=== PATIENT | male | born 1995 | race American Indian/Alaskan Native ===

== ENCOUNTER 2018-08-27 10:46 | Inpatient (IN) | payer BC, OTHER ==
[2018-08-27] MEDS ORDERED: NACL 0.9% 1000 ML 1,000 ML IV ONE (10:51)
[2018-08-27 11:18] LABS: Basophils # (Auto) 0.1 K/mm3 (0.0-0.1); Eosinophils # (Auto) 0.3 K/mm3 (0.0-0.4); Hemoglobin 15.1 gm/dl (11.8-15.2); Monocytes # (Auto) 0.7 K/mm3 (0.0-0.8); Monocytes % (Auto) 13.6 % (0.0-7.3); Red Blood Count 5.44 M/mm3 (3.65-5.03)
[2018-08-27 11:19] LABS: Lymphocytes # (Auto) 1.3 K/mm3 (1.2-5.4); Lymphocytes % (Auto) 24.4 % (13.4-35.0); Mean Corpuscular HGB Conc 33 % (32-34); Mean Corpuscular Volume 85 fl (84-94); Platelet Count 216 K/mm3 (140-440); Red Cell Distribution Width 15.1 % (13.2-15.2)
[2018-08-27 11:34] LABS: Alanine Aminotransferase 11 units/L (7-56); Albumin 3.6 g/dL (3.9-5); BUN/Creatinine Ratio 7; Blood Urea Nitrogen 8 mg/dL (9-20); Calcium 8.6 mg/dL (8.4-10.2); Hemolysis Index 19
--- NOTE | 2018-08-27 11:58 | Emergency Department Report ---
HPI - General Chief Complaint: Altered Mental Status Time Seen by Provider: 08/27/18 10:51 - HPI HPI: 23-year-old -[place] male presents to ED after taking unknown amount of Tylenol, aspirin, as a suicidal gesture. He is accompanied by her brother, who stated he didn't know he had depression, and doesn't know many pills he took. He denies that he approximately took 10 equate acetaminophen pills unknown dosage, and 10 of aspirin 81 mg. Stated he didn't want to live anymore. ED Past Medical Hx - Past Medical History Previous Medical History?: No - Surgical History Past Surgical History?: No - Social History Smoking Status: Current Every Day Smoker Substance Use Type: Alcohol, Marijuana - Medications Home Medications: Home Medications Medication Instructions Recorded Confirmed Last Taken Type Ketorolac [Toradol] 10 mg PO Q6H PRN #20 tablet 01/03/15 Unknown Rx ED Review of Systems ROS: Stated complaint: OVERDOSE PAIN PILLS Other details as noted in HPI Comment: All other systems reviewed and negative Respiratory: denies: cough Cardiovascular: denies: chest pain Gastrointestinal: nausea Musculoskeletal: denies: back pain Psychiatric: anxiety, depression Physical Exam - Physical Exam Vital Signs: Vital Signs 08/27/18 11:00 Temperature 97.5 F L Pulse Rate 85 Respiratory 16 Rate Blood Pressure 144/94 O2 Sat by Pulse 98 Oximetry Physical Exam: Physical Exam: - General Limitations: No Limitations General appearance: awake, but lethargic, in no apparent distress,thin - Head Head exam: Present: atraumatic, normocephalic - Eye Eye exam: Present: normal appearance - ENT ENT exam: Present: mucous membranes moist - Neck Neck exam: Present: normal inspection - Respiratory Respiratory exam: Present: normal lung sounds bilaterally. Absent: respiratory distress - Cardiovascular Cardiovascular Exam: Present: normal rhythm, tachycardia. Absent: systolic murm ur, diastolic murmur, rubs, gallop - GI/Abdominal GI/Abdominal exam: Present: soft, normal bowel sounds - Extremities Exam Extremities exam: Present: normal inspection - Back Exam Back exam: Present: normal inspection - Neurological Exam Neurological exam: Present: Lethargic - Psychiatric Psychiatric exam: Depressed mood - Skin Skin exam: Present: warm, dry, intact, normal color. Absent: rash ED Course Vital Signs 08/27/18 11:00 Temperature 97.5 F L Pulse Rate 85 Respiratory 16 Rate Blood Pressure 144/94 O2 Sat by Pulse 98 Oximetry ED Medical Decision Making - Lab Data Result diagrams: 08/27/18 10:57 08/27/18 10:57 - Medical Decision Making The patient was placed on 1013, he was hydrated with normal saline 1 L, he was started on Mucomyst, per poison control. He will be admitted under 1013, transferred to psych once medically clear. Critical Care Time: Yes Critical care time in (mins) excluding proc time.: 30 Critical care attestation.: If time is entered above; I have spent that time in minutes in the direct care of this critically ill patient, excluding procedure time. ED Disposition Clinical Impression: Suicidal ideation, Suicidal behavior with attempted self-injury Disposition: DC-09 OP ADMIT IP TO THIS HOSP Is pt being admited?: Yes Does the pt Need Aspirin: No Condition: Critical
--- NOTE | 2018-08-27 12:00 | Cat Scan Report ---
PROCEDURE: CT HEAD/BRAIN WO CON TECHNIQUE: Computerized tomography of the head was performed without contrast material. CT DOSE LENGTH PRODUCT: 1035.5 mGycm HISTORY: ams COMPARISONS: None . FINDINGS: Skull and scalp: Normal . Paranasal sinuses: Normal . Ventricles and subarachnoid spaces: Normal . Cerebrum: No evidence of hemorrhage, acute infarction or mass . Cerebellum and brainstem: No evidence of hemorrhage, acute infarction or mass . Vasculature: Normal . Other: None . ASPECTS: 10 IMPRESSION: No acute intracranial abnormality . This document is electronically signed by Lacie Joseph MD., August 27 2018 11:57:57 AM ET
[2018-08-27] MEDS ORDERED: D5W IV ONE ×3 (15:30→21:00)
[2018-08-27] MEDS ORDERED: ACETADOTE IV ONE ×3 (15:30→21:00)
[2018-08-27 16:05] LABS: Bilirubin,Urine NEG (Negative); Blood,Urine NEG (Negative); Color,Urine Straw (Yellow); Protein,Urine <15 mg/dL mg/dL (Negative); Urobilinogen,Urine < 2.0 mg/dL (<2.0)
[2018-08-27 16:09] LABS: RBC,Urine < 1.0 /HPF (0.0-6.0); WBC,Urine < 1.0 /HPF (0.0-6.0)
[2018-08-27 16:15] LABS: Amphetamine Screen,Urine PRESUMPTIVE NEGATIVE; Benzodiazepines Screen,Urine PRESUMPTIVE NEGATIVE; Cocaine Screen,Urine PRESUMPTIVE NEGATIVE; Methadone Screen,Urine PRESUMPTIVE NEGATIVE; Opiate Screen,Urine PRESUMPTIVE NEGATIVE
[2018-08-27 16:32] LABS: Cannabinoid Screen,Urine PRESUMPTIVE POSITIVE
[2018-08-27] MEDS: NACL 0.9% 1000 ML 1,000 ML IV SCH (18:33)
--- NOTE | 2018-08-27 20:25 | History and Physical Report ---
History of Present Illness Date of examination: 08/27/18 Date of admission: 08/27/18 12:52 Chief complaint: 210 tablets for her aspirin and her 10 tablets for Tylenol with the intent of dying History of present illness: 23-year-old -Wallisian male with no significant past medical history took about 10 tablets of aspirin and 10 tablets after Tylenol 3-4 hours ago. Patient says that he is depressed and wanted to . He says that there is no incentive to live. No vomiting. No gastric lavage done in the emergency room Past Medical History Previous Medical History?: No Surgical History Past Surgical History?: No Social History Smoking Status: Current Every Day Smoker Substance Use Type: Alcohol, Marijuana Family history HTN Medications Home Medications: Home Medications Medication Instructions Recorded Confirmed Last Taken Type Ketorolac [Toradol] 10 mg PO Q6H PRN #20 tablet 01/03/15 Unknown Rx Review of Systems ROS: Stated complaint: OVERDOSE PAIN PILLS Other details as noted in HPI Comment: All other systems reviewed and negative Respiratory: denies: cough Cardiovascular: denies: chest pain Gastrointestinal: nausea Musculoskeletal: denies: back pain Psychiatric: anxiety, depression 14 point review of systems done and was negative. Medications and Allergies Allergies Allergy/AdvReac Type Severity Reaction Status Date / Time No Known Allergies Allergy Unverified 01/03/15 13:24 Home Medications Medication Instructions Recorded Confirmed Last Taken Type Ketorolac [Toradol] 10 mg PO Q6H PRN #20 tablet 01/03/15 Unknown Rx Active Meds: Active Medications Sodium Chloride (Nacl 0.9% 1000 Ml) 1,000 mls @ 150 mls/hr IV DIRECT MICHELINE Last Admin: 08/27/18 18:33 Dose: 150 mls/hr Documented by: Exam - Constitutional Vitals: Temp Pulse Resp BP Pulse Ox 97.9 F 60 18 142/89 97 08/27/18 15:26 08/27/18 15:26 08/27/18 15:26 08/27/18 15:26 08/27/18 15:26 General appearance: Present: no acute distress, well-nourished - EENT Eyes: Present: PERRL ENT: hearing intact, clear oral mucosa - Neck Neck: Present: supple, normal ROM - Respiratory Respiratory effort: normal Respiratory: bilateral: CTA - Cardiovascular Heart rate: 78 Rhythm: regular Heart Sounds: Present: S1 & S2. Absent: rub, click - Extremities Extremities: no ischemia, pulses intact, pulses symmetrical, No edema Peripheral Pulses: within normal limits - Abdominal General gastrointestinal: Present: soft, non-tender, non-distended, normal bowel sounds Male genitourinary: Present: normal - Rectal Rectal Exam: deferred - Integumentary Integumentary: Present: clear, warm, dry - Musculoskeletal Musculoskeletal: gait normal, strength equal bilaterally - Psychiatric Psychiatric: appropriate mood/affect, intact judgment & insight, depressed - Neurologic Neurologic: CNII-XII intact, moves all extremities - Allied Health Allied health notes reviewed: nursing, case management Results - Labs CBC & Chem 7: 08/27/18 10:57 08/27/18 10:57 Labs: Laboratory Last Values WBC 5.2 K/mm3 (4.5-11.0) 08/27/18 10:57 RBC 5.44 M/mm3 (3.65-5.03) H 08/27/18 10:57 Hgb 15.1 gm/dl (11.8-15.2) 08/27/18 10:57 Hct 46.0 % (35.5-45.6) H 08/27/18 10:57 MCV 85 fl (84-94) 08/27/18 10:57 MCH 28 pg (28-32) 08/27/18 10:57 MCHC 33 % (32-34) 08/27/18 10:57 RDW 15.1 % (13.2-15.2) 08/27/18 10:57 Plt Count 216 K/mm3 (140-440) 08/27/18 10:57 Lymph % (Auto) 24.4 % (13.4-35.0) 08/27/18 10:57 [place] % (Auto) 13.6 % (0.0-7.3) H 08/27/18 10:57 Eos % (Auto) 5.0 % (0.0-4.3) H 08/27/18 10:57 Baso % (Auto) 1.0 % (0.0-1.8) 08/27/18 10:57 Lymph # 1.3 K/mm3 (1.2-5.4) 08/27/18 10:57 [place] # 0.7 K/mm3 (0.0-0.8) 08/27/18 10:57 Eos # 0.3 K/mm3 (0.0-0.4) 08/27/18 10:57 Baso # 0.1 K/mm3 (0.0-0.1) 08/27/18 10:57 Add Manual Diff Complete 08/27/18 10:57 Seg Neutrophils % 56.0 % (40.0-70.0) 08/27/18 10:57 Seg Neutrophils # 2.9 K/mm3 (1.8-7.7) 08/27/18 10:57 Sodium 141 mmol/L (137-145) 08/27/18 10:57 Potassium 3.5 mmol/L (3.6-5.0) L 08/27/18 10:57 Chloride 104.5 mmol/L (98-107) 08/27/18 10:57 Carbon Dioxide 23 mmol/L (22-30) 08/27/18 10:57 17 mmol/L 08/27/18 10:57 BUN 8 mg/dL (9-20) L 08/27/18 10:57 1.2 mg/dL (0.8-1.5) 08/27/18 10:57 Estimated GFR > 60 ml/min 08/27/18 10:57 7 % 08/27/18 10:57 Glucose 82 mg/dL (75-100) 08/27/18 10:57 Calcium 8.6 mg/dL (8.4-10.2) 08/27/18 10:57 0.20 mg/dL (0.1-1.2) 08/27/18 10:57 AST 18 units/L (5-40) 08/27/18 10:57 ALT 11 units/L (7-56) 08/27/18 10:57 72 units/L (35-129) 08/27/18 10:57 < 0.010 ng/mL (0.00-0.029) 08/27/18 10:57 6.6 g/dL (6.3-8.2) 08/27/18 10:57 3.6 g/dL (3.9-5) L 08/27/18 10:57 1.2 % 08/27/18 10:57 Straw (Yellow) 08/27/18 Unknown Clear (Clear) 08/27/18 Unknown 6.0 (5.0-7.0) 08/27/18 Unknown Ur Specific [place] 1.010 (1.003-1.030) 08/27/18 Unknown <15 mg/dl mg/dL (Negative) 08/27/18 Unknown Neg mg/dL (Negative) 08/27/18 Unknown Neg mg/dL (Negative) 08/27/18 Unknown Neg (Negative) 08/27/18 Unknown Neg (Negative) 08/27/18 Unknown Neg (Negative) 08/27/18 Unknown < 2.0 mg/dL (<2.0) 08/27/18 Unknown Ur Leukocyte Esterase Neg (Negative) 08/27/18 Unknown < 1.0 /HPF (0.0-6.0) 08/27/18 Unknown < 1.0 /HPF (0.0-6.0) 08/27/18 Unknown U Epithel Cells (Auto) < 1.0 /HPF (0-13.0) 08/27/18 Unknown Salicylates 4.1 mg/dL (2.8-20.0) 08/27/18 14:42 Presumptive negative 08/27/18 Unknown Presumptive negative 08/27/18 Unknown Acetaminophen 50.6 ug/mL (10.0-30.0) H 08/27/18 14:42 Ur Barbiturates Screen Presumptive negative 08/27/18 Unknown Ur Phencyclidine Scrn Presumptive negative 08/27/18 Unknown Ur Amphetamines Screen Presumptive negative 08/27/18 Unknown U Benzodiazepines Scrn Presumptive negative 08/27/18 Unknown Presumptive negative 08/27/18 Unknown U Marijuana (THC) Screen Presumptive positive 08/27/18 Unknown Disclamer 08/27/18 Unknown Plasma/Serum Alcohol 0.06 % (0-0.07) 08/27/18 10:57 Short CBC 08/27/18 Range/Units 10:57 WBC 5.2 (4.5-11.0) K/mm3 Hgb 15.1 (11.8-15.2) gm/dl Hct 46.0 H (35.5-45.6) % Plt Count 216 (140-440) K/mm3 BMP 08/27/18 10:57 Sodium 141 Potassium 3.5 L Chloride 104.5 Carbon Dioxide 23 BUN 8 L Creatinine 1.2 Glucose 82 Calcium 8.6 Cardiac Enzymes 08/27/18 Range/Units 10:57 Troponin T < 0.010 (0.00-0.029) ng/mL Liver Function 08/27/18 Range/Units 10:57 Total Bilirubin 0.20 (0.1-1.2) mg/dL AST 18 (5-40) units/L ALT 11 (7-56) units/L Alkaline Phosphatase 72 (35-129) units/L Albumin 3.6 L (3.9-5) g/dL Urine 08/27/18 Range/Units Unknown Urine Color Straw (Yellow) Urine pH 6.0 (5.0-7.0) Ur Specific [place] 1.010 (1.003-1.030) Urine Protein <15 mg/dl (Negative) mg/dL Urine Glucose (UA) Neg (Negative) mg/dL - Imaging and Cardiology CT Scan - head: report reviewed (no acute findings) Assessment and Plan Advance Directives: Yes (full code) VTE prophylaxis?: Chemical Plan of care discussed with patient/family: Yes - Patient Problems (1) Suicidal behavior with attempted self-injury Current Visit: Yes Status: Acute Plan to address problem: Mental health consult requested Patient is depressed Patient may need antidepressants (2) Tylenol overdose Current Visit: Yes Status: Acute Qualifiers: Encounter type: initial encounter Plan to address problem: Tylenol level 94.5 Discussed with poison control Only IV fluids No Mucomyst Observation (3) Depression Current Visit: Yes Status: Chronic Plan to address problem: Will defer to mental health consult (4) Hypokalemia Current Visit: Yes Status: Acute Plan to address problem: Supplemented (5) DVT prophylaxis Current Visit: Yes Status: Acute Plan to address problem: On Lovenox and GI prophylaxis
[2018-08-27] MEDS ORDERED: ZOFRAN IV PRN (20:29)
[2018-08-27] MEDS ORDERED: DILAUDID IV PRN (20:29)
[2018-08-27] MEDS ORDERED: SODIUM CHLORIDE FLUSH SYRINGE 10 ML IV PRN (20:29)
[2018-08-27] MEDS ORDERED: TYLENOL PO PRN (20:29)
[2018-08-27] MEDS: PEPCID IV SCH (23:22)
[2018-08-27] MEDS: LOVENOX SUB-Q SCH (23:23)
[2018-08-27] MEDS: SODIUM CHLORIDE FLUSH SYRINGE 10 ML IV SCH (23:23)
[2018-08-28] MEDS: NACL 0.9% 1000 ML 1,000 ML IV SCH ×4 (00:56→18:14)
[2018-08-28 08:45] LABS: Basophils # (Auto) 0.1 K/mm3 (0.0-0.1); Basophils % (Auto) 1.3 % (0.0-1.8); Eosinophils # (Auto) 0.2 K/mm3 (0.0-0.4); Eosinophils % (Auto) 4.4 % (0.0-4.3); Hematocrit 43.1 % (35.5-45.6); Hemoglobin 14.1 gm/dl (11.8-15.2); Lymphocytes # (Auto) 1.1 K/mm3 (1.2-5.4); Lymphocytes % (Auto) 23.5 % (13.4-35.0); Mean Corpuscular HGB Conc 33 % (32-34); Mean Corpuscular Volume 85 fl (84-94); Monocytes # (Auto) 0.4 K/mm3 (0.0-0.8); Monocytes % (Auto) 8.2 % (0.0-7.3); Platelet Count 204 K/mm3 (140-440); Red Blood Count 5.08 M/mm3 (3.65-5.03)
[2018-08-28 09:14] LABS: Alanine Aminotransferase 9 units/L (7-56); Albumin 3.2 g/dL (3.9-5); BUN/Creatinine Ratio 6; Blood Urea Nitrogen 6 mg/dL (9-20); Calcium 8.2 mg/dL (8.4-10.2); Hemolysis Index 11
[2018-08-28] MEDS: PEPCID IV SCH ×2 (12:07→21:46)
[2018-08-28] MEDS: SODIUM CHLORIDE FLUSH SYRINGE 10 ML IV SCH ×2 (12:08→21:46)
--- NOTE | 2018-08-28 17:32 | Progress Note ---
Assessment and Plan Assessment and plan: --Suicide attempt; suicide watch 1013 status, follow psych evaluation and recommendations --Tylenol overdose; interventional/suicidal attempt Monitor levels, LFTs, continue supportive care Patient received a dose of status post ED Poison control recommend supportive care with IV fluids and Tylenol levels --Depression:1013 status Management per psych hypokalemia --Hypokalemia; corrected --DVT prophylaxis; Lovenox 1013 status Follow psych evaluation and recommendations Possible discharge in 1-2 days if stable History Interval history: Patient seen and examined medical records reviewed Admitted with suicidal attempt with Tylenol overdose Patient received a stent sustaining the ED Poison control advice to closely monitor the IV fluids An monitor Tylenol levels Patient feels better alert awake oriented No new complaints Awaiting psych evaluation Vital signs noted Hospitalist Physical - Constitutional Vitals: Temp Pulse Resp BP Pulse Ox 98.1 F 57 L 20 141/90 98 08/28/18 17:12 08/28/18 17:12 08/28/18 17:12 08/28/18 17:12 08/28/18 17:12 General appearance: Present: no acute distress, well-nourished - EENT Eyes: Present: PERRL, EOM intact - Neck Neck: Present: supple, normal ROM - Respiratory Respiratory effort: normal Respiratory: negative: rales, rhonchi, wheezing - Cardiovascular Rhythm: regular Heart Sounds: Present: S1 & S2 - Extremities Extremities: no ischemia, No edema - Abdominal General gastrointestinal: soft, non-tender, non-distended, normal bowel sounds - Integumentary Integumentary: Present: clear, warm - Psychiatric Psychiatric: appropriate mood/affect, cooperative - Neurologic Neurologic: moves all extremities Results - Labs CBC & Chem 7: 08/28/18 07:18 08/28/18 07:18 Labs: Laboratory Last Values WBC 4.8 K/mm3 (4.5-11.0) 08/28/18 07:18 RBC 5.08 M/mm3 (3.65-5.03) H 08/28/18 07:18 Hgb 14.1 gm/dl (11.8-15.2) 08/28/18 07:18 Hct 43.1 % (35.5-45.6) 08/28/18 07:18 MCV 85 fl (84-94) 08/28/18 07:18 MCH 28 pg (28-32) 08/28/18 07:18 MCHC 33 % (32-34) 08/28/18 07:18 RDW 15.0 % (13.2-15.2) 08/28/18 07:18 Plt Count 204 K/mm3 (140-440) 08/28/18 07:18 Lymph % (Auto) 23.5 % (13.4-35.0) 08/28/18 07:18 [place] % (Auto) 8.2 % (0.0-7.3) H 08/28/18 07:18 Eos % (Auto) 4.4 % (0.0-4.3) H 08/28/18 07:18 Baso % (Auto) 1.3 % (0.0-1.8) 08/28/18 07:18 Lymph # 1.1 K/mm3 (1.2-5.4) L 08/28/18 07:18 [place] # 0.4 K/mm3 (0.0-0.8) 08/28/18 07:18 Eos # 0.2 K/mm3 (0.0-0.4) 08/28/18 07:18 Baso # 0.1 K/mm3 (0.0-0.1) 08/28/18 07:18 Add Manual Diff Complete 08/27/18 10:57 Seg Neutrophils % 62.6 % (40.0-70.0) 08/28/18 07:18 Seg Neutrophils # 3.0 K/mm3 (1.8-7.7) 08/28/18 07:18 Sodium 140 mmol/L (137-145) 08/28/18 07:18 Potassium 3.9 mmol/L (3.6-5.0) 08/28/18 07:18 Chloride 105.5 mmol/L (98-107) 08/28/18 07:18 Carbon Dioxide 26 mmol/L (22-30) 08/28/18 07:18 12 mmol/L 08/28/18 07:18 BUN 6 mg/dL (9-20) L 08/28/18 07:18 1.0 mg/dL (0.8-1.5) 08/28/18 07:18 Estimated GFR > 60 ml/min 08/28/18 07:18 6 % 08/28/18 07:18 Glucose 87 mg/dL (75-100) 08/28/18 07:18 5.5 % (4-6) 08/27/18 20:43 Calcium 8.2 mg/dL (8.4-10.2) L 08/28/18 07:18 0.30 mg/dL (0.1-1.2) 08/28/18 07:18 AST 16 units/L (5-40) 08/28/18 07:18 ALT 9 units/L (7-56) 08/28/18 07:18 56 units/L (35-129) 08/28/18 07:18 < 0.010 ng/mL (0.00-0.029) 08/27/18 10:57 5.9 g/dL (6.3-8.2) L 08/28/18 07:18 3.2 g/dL (3.9-5) L 08/28/18 07:18 1.2 % 08/28/18 07:18 Straw (Yellow) 08/27/18 Unknown Clear (Clear) 08/27/18 Unknown 6.0 (5.0-7.0) 08/27/18 Unknown Ur Specific [place] 1.010 (1.003-1.030) 08/27/18 Unknown <15 mg/dl mg/dL (Negative) 08/27/18 Unknown Neg mg/dL (Negative) 08/27/18 Unknown Neg mg/dL (Negative) 08/27/18 Unknown Neg (Negative) 08/27/18 Unknown Neg (Negative) 08/27/18 Unknown Neg (Negative) 08/27/18 Unknown < 2.0 mg/dL (<2.0) 08/27/18 Unknown Ur Leukocyte Esterase Neg (Negative) 08/27/18 Unknown < 1.0 /HPF (0.0-6.0) 08/27/18 Unknown < 1.0 /HPF (0.0-6.0) 08/27/18 Unknown U Epithel Cells (Auto) < 1.0 /HPF (0-13.0) 08/27/18 Unknown Salicylates 4.1 mg/dL (2.8-20.0) 08/27/18 14:42 Presumptive negative 08/27/18 Unknown Presumptive negative 08/27/18 Unknown Acetaminophen 50.6 ug/mL (10.0-30.0) H 08/27/18 14:42 Ur Barbiturates Screen Presumptive negative 08/27/18 Unknown Ur Phencyclidine Scrn Presumptive negative 08/27/18 Unknown Ur Amphetamines Screen Presumptive negative 08/27/18 Unknown U Benzodiazepines Scrn Presumptive negative 08/27/18 Unknown Presumptive negative 08/27/18 Unknown U Marijuana (THC) Screen Presumptive positive 08/27/18 Unknown Disclamer 08/27/18 Unknown Plasma/Serum Alcohol 0.06 % (0-0.07) 08/27/18 10:57 Active Medications - Current Medications Current Medications: Generic Name Dose Route Start Last Admin Trade Name Freq PRN Reason Stop Dose Admin Acetaminophen 650 mg 08/27/18 20:29 Tylenol PO Q4H PRN Pain MILD(1-3)/Fever >100.5/THOMAS Enoxaparin Sodium 40 mg 08/27/18 22:00 08/27/18 23:23 Lovenox SUB-Q 40 mg QDAY@2200 MICHELINE Administration Famotidine 20 mg 08/27/18 22:00 08/28/18 12:07 Pepcid IV 20 mg BID MICHELINE Administration Hydromorphone HCl 0.5 mg 08/27/18 20:29 Dilaudid IV Q3H PRN Pain , Severe (7-10) Ondansetron HCl 4 mg 08/27/18 20:29 Zofran IV Q8H PRN Nausea And Vomiting Sodium Chloride 10 ml 08/27/18 22:00 08/28/18 12:08 Sodium Chloride Flush Syringe 10 Ml IV 10 ml BID MICHELINE Administration Sodium Chloride 10 ml 08/27/18 20:29 Sodium Chloride Flush Syringe 10 Ml IV PRN PRN LINE FLUSH
[2018-08-28] MEDS: LOVENOX SUB-Q SCH (21:46)
[2018-08-29] MEDS: NACL 0.9% 1000 ML 1,000 ML IV SCH (06:19)
[2018-08-29 07:17] LABS: Alanine Aminotransferase 7 units/L (7-56); Albumin 3.4 g/dL (3.9-5); BUN/Creatinine Ratio 5; Blood Urea Nitrogen 5 mg/dL (9-20); Hemolysis Index 7
[2018-08-29] MEDS: PEPCID IV SCH (09:53)
[2018-08-29] MEDS: SODIUM CHLORIDE FLUSH SYRINGE 10 ML IV SCH ×2 (09:54→21:16)
--- NOTE | 2018-08-29 15:14 | Progress Note ---
Assessment and Plan Assessment and plan: --Suicide attempt; suicide watch 1013 status, follow psych evaluation and recommendations --Tylenol overdose; intentional/suicidal attempt Tylenol levels normal limits Normal LFTs, continue supportive care Patient received a dose of acetylcysteine in ED Poison control recommend supportive care --Depression:1013 status Management per psych --Hypokalemia; corrected --Mild malnutrition/hypoalbuminemia Supportive care --Marijuana use; advised to quit recreational drug use Patient verbalized understanding --DVT prophylaxis; Lovenox 1013 status Patient is medically stable for discharge Disposition per psych Possible discharge in 1-2 days if stable History Interval history: Patient seen and examined medical records reviewed Vent supported by the nursing Patient feels better Vital signs stable 1013 status Hospitalist Physical - Constitutional Vitals: Temp Pulse Resp BP Pulse Ox 97.3 F L 60 20 139/80 98 08/29/18 08:21 08/29/18 08:21 08/29/18 08:21 08/29/18 08:21 08/29/18 08:21 General appearance: Present: no acute distress, well-nourished - EENT Eyes: Present: PERRL, EOM intact - Neck Neck: Present: supple, normal ROM - Respiratory Respiratory effort: normal Respiratory: bilateral: diminished, negative: rales, rhonchi, wheezing - Cardiovascular Rhythm: regular Heart Sounds: Present: S1 & S2 - Extremities Extremities: no ischemia, No edema - Abdominal General gastrointestinal: soft, non-tender, non-distended, normal bowel sounds - Integumentary Integumentary: Present: clear, warm - Psychiatric Psychiatric: appropriate mood/affect, cooperative - Neurologic Neurologic: CNII-XII intact, moves all extremities Results - Labs CBC & Chem 7: 08/28/18 07:18 08/29/18 06:15 Labs: Laboratory Last Values WBC 4.8 K/mm3 (4.5-11.0) 08/28/18 07:18 RBC 5.08 M/mm3 (3.65-5.03) H 08/28/18 07:18 Hgb 14.1 gm/dl (11.8-15.2) 08/28/18 07:18 Hct 43.1 % (35.5-45.6) 08/28/18 07:18 MCV 85 fl (84-94) 08/28/18 07:18 MCH 28 pg (28-32) 08/28/18 07:18 MCHC 33 % (32-34) 08/28/18 07:18 RDW 15.0 % (13.2-15.2) 08/28/18 07:18 Plt Count 204 K/mm3 (140-440) 08/28/18 07:18 Lymph % (Auto) 23.5 % (13.4-35.0) 08/28/18 07:18 [place] % (Auto) 8.2 % (0.0-7.3) H 08/28/18 07:18 Eos % (Auto) 4.4 % (0.0-4.3) H 08/28/18 07:18 Baso % (Auto) 1.3 % (0.0-1.8) 08/28/18 07:18 Lymph # 1.1 K/mm3 (1.2-5.4) L 08/28/18 07:18 [place] # 0.4 K/mm3 (0.0-0.8) 08/28/18 07:18 Eos # 0.2 K/mm3 (0.0-0.4) 08/28/18 07:18 Baso # 0.1 K/mm3 (0.0-0.1) 08/28/18 07:18 Add Manual Diff Complete 08/27/18 10:57 Seg Neutrophils % 62.6 % (40.0-70.0) 08/28/18 07:18 Seg Neutrophils # 3.0 K/mm3 (1.8-7.7) 08/28/18 07:18 Sodium 143 mmol/L (137-145) 08/29/18 06:15 Potassium 4.4 mmol/L (3.6-5.0) 08/29/18 06:15 Chloride 106.6 mmol/L (98-107) 08/29/18 06:15 Carbon Dioxide 26 mmol/L (22-30) 08/29/18 06:15 15 mmol/L 08/29/18 06:15 BUN 5 mg/dL (9-20) L 08/29/18 06:15 1.1 mg/dL (0.8-1.5) 08/29/18 06:15 Estimated GFR > 60 ml/min 08/29/18 06:15 5 % 08/29/18 06:15 Glucose 82 mg/dL (75-100) 08/29/18 06:15 5.5 % (4-6) 08/27/18 20:43 Calcium 9.0 mg/dL (8.4-10.2) 08/29/18 06:15 0.30 mg/dL (0.1-1.2) 08/29/18 06:15 AST 13 units/L (5-40) 08/29/18 06:15 ALT 7 units/L (7-56) 08/29/18 06:15 60 units/L (35-129) 08/29/18 06:15 < 0.010 ng/mL (0.00-0.029) 08/27/18 10:57 5.7 g/dL (6.3-8.2) L 08/29/18 06:15 3.4 g/dL (3.9-5) L 08/29/18 06:15 1.5 % 08/29/18 06:15 Straw (Yellow) 08/27/18 Unknown Clear (Clear) 08/27/18 Unknown 6.0 (5.0-7.0) 08/27/18 Unknown Ur Specific [place] 1.010 (1.003-1.030) 08/27/18 Unknown <15 mg/dl mg/dL (Negative) 08/27/18 Unknown Neg mg/dL (Negative) 08/27/18 Unknown Neg mg/dL (Negative) 08/27/18 Unknown Neg (Negative) 08/27/18 Unknown Neg (Negative) 08/27/18 Unknown Neg (Negative) 08/27/18 Unknown < 2.0 mg/dL (<2.0) 08/27/18 Unknown Ur Leukocyte Esterase Neg (Negative) 08/27/18 Unknown < 1.0 /HPF (0.0-6.0) 08/27/18 Unknown < 1.0 /HPF (0.0-6.0) 08/27/18 Unknown U Epithel Cells (Auto) < 1.0 /HPF (0-13.0) 08/27/18 Unknown Salicylates 4.1 mg/dL (2.8-20.0) 08/27/18 14:42 Presumptive negative 08/27/18 Unknown Presumptive negative 08/27/18 Unknown Acetaminophen < 5.0 ug/mL (10.0-30.0) L 08/28/18 21:50 Ur Barbiturates Screen Presumptive negative 08/27/18 Unknown Ur Phencyclidine Scrn Presumptive negative 08/27/18 Unknown Ur Amphetamines Screen Presumptive negative 08/27/18 Unknown U Benzodiazepines Scrn Presumptive negative 08/27/18 Unknown Presumptive negative 08/27/18 Unknown U Marijuana (THC) Screen Presumptive positive 08/27/18 Unknown Disclamer 08/27/18 Unknown Plasma/Serum Alcohol 0.06 % (0-0.07) 08/27/18 10:57 Active Medications - Current Medications Current Medications: Generic Name Dose Route Start Last Admin Trade Name Freq PRN Reason Stop Dose Admin Acetaminophen 650 mg 08/27/18 20:29 Tylenol PO Q4H PRN Pain MILD(1-3)/Fever >100.5/THOMAS Enoxaparin Sodium 40 mg 08/27/18 22:00 08/28/18 21:46 Lovenox SUB-Q 40 mg QDAY@2200 MICHELINE Administration Famotidine 20 mg 08/27/18 22:00 08/29/18 09:53 Pepcid IV 20 mg BID MICHELINE Administration Hydromorphone HCl 0.5 mg 08/27/18 20:29 Dilaudid IV Q3H PRN Pain , Severe (7-10) Sodium Chloride 1,000 mls @ 75 mls/hr 08/28/18 18:00 08/29/18 06:19 Nacl 0.9% 1000 Ml IV 75 mls/hr DIRECT MICHELINE Administration Ondansetron HCl 4 mg 08/27/18 20:29 Zofran IV Q8H PRN Nausea And Vomiting Sodium Chloride 10 ml 08/27/18 22:00 08/29/18 09:54 Sodium Chloride Flush Syringe 10 Ml IV 10 ml BID MICHELINE Administration Sodium Chloride 10 ml 08/27/18 20:29 Sodium Chloride Flush Syringe 10 Ml IV PRN PRN LINE FLUSH
[2018-08-29] MEDS: LOVENOX SUB-Q SCH (21:14)
[2018-08-29] MEDS: PEPCID PO SCH (21:14)
[2018-08-30] MEDS: SODIUM CHLORIDE FLUSH SYRINGE 10 ML IV SCH ×2 (10:34→21:52)
[2018-08-30] MEDS: PEPCID PO SCH ×2 (10:35→21:52)
--- NOTE | 2018-08-30 11:55 | Progress Note ---
Assessment and Plan Assessment and plan: --Suicide attempt; suicide watch 1013 status, follow psych evaluation and recommendations --Tylenol overdose; intentional/suicidal attempt Tylenol levels normal limits Normal LFTs, no symptoms Patient received a dose of acetylcysteine in ED Poison control recommend supportive care --Depression:1013 status Management per psych --Hypokalemia; corrected --Mild malnutrition/hypoalbuminemia Supportive care --Marijuana use; advised to quit recreational drug use Patient verbalized understanding --DVT prophylaxis; Lovenox 1013 status Patient is medically stable for discharge Disposition per psych Plan of care reviewed with the mother at the bedside History Interval history: Patient seen and examined medical records reviewed No new Complaints Vital signs Stable Hospitalist Physical - Constitutional Vitals: Temp Pulse Resp BP Pulse Ox 97.5 F L 60 16 151/92 99 08/30/18 11:48 08/30/18 11:48 08/30/18 11:48 08/30/18 11:48 08/30/18 11:48 General appearance: Present: no acute distress, well-nourished - EENT Eyes: Present: PERRL, EOM intact - Neck Neck: Present: supple, normal ROM - Respiratory Respiratory effort: normal Respiratory: negative: rales, rhonchi, wheezing - Cardiovascular Rhythm: regular Heart Sounds: Present: S1 & S2 - Extremities Extremities: no ischemia, No edema - Abdominal General gastrointestinal: soft, non-tender, non-distended, normal bowel sounds - Integumentary Integumentary: Present: clear, warm - Psychiatric Psychiatric: appropriate mood/affect, cooperative - Neurologic Neurologic: CNII-XII intact, moves all extremities Results - Labs CBC & Chem 7: 08/28/18 07:18 08/29/18 06:15 Labs: Laboratory Last Values WBC 4.8 K/mm3 (4.5-11.0) 08/28/18 07:18 RBC 5.08 M/mm3 (3.65-5.03) H 08/28/18 07:18 Hgb 14.1 gm/dl (11.8-15.2) 08/28/18 07:18 Hct 43.1 % (35.5-45.6) 08/28/18 07:18 MCV 85 fl (84-94) 08/28/18 07:18 MCH 28 pg (28-32) 08/28/18 07:18 MCHC 33 % (32-34) 08/28/18 07:18 RDW 15.0 % (13.2-15.2) 08/28/18 07:18 Plt Count 204 K/mm3 (140-440) 08/28/18 07:18 Lymph % (Auto) 23.5 % (13.4-35.0) 08/28/18 07:18 [place] % (Auto) 8.2 % (0.0-7.3) H 08/28/18 07:18 Eos % (Auto) 4.4 % (0.0-4.3) H 08/28/18 07:18 Baso % (Auto) 1.3 % (0.0-1.8) 08/28/18 07:18 Lymph # 1.1 K/mm3 (1.2-5.4) L 08/28/18 07:18 [place] # 0.4 K/mm3 (0.0-0.8) 08/28/18 07:18 Eos # 0.2 K/mm3 (0.0-0.4) 08/28/18 07:18 Baso # 0.1 K/mm3 (0.0-0.1) 08/28/18 07:18 Add Manual Diff Complete 08/27/18 10:57 Seg Neutrophils % 62.6 % (40.0-70.0) 08/28/18 07:18 Seg Neutrophils # 3.0 K/mm3 (1.8-7.7) 08/28/18 07:18 Sodium 143 mmol/L (137-145) 08/29/18 06:15 Potassium 4.4 mmol/L (3.6-5.0) 08/29/18 06:15 Chloride 106.6 mmol/L (98-107) 08/29/18 06:15 Carbon Dioxide 26 mmol/L (22-30) 08/29/18 06:15 15 mmol/L 08/29/18 06:15 BUN 5 mg/dL (9-20) L 08/29/18 06:15 1.1 mg/dL (0.8-1.5) 08/29/18 06:15 Estimated GFR > 60 ml/min 08/29/18 06:15 5 % 08/29/18 06:15 Glucose 82 mg/dL (75-100) 08/29/18 06:15 5.5 % (4-6) 08/27/18 20:43 Calcium 9.0 mg/dL (8.4-10.2) 08/29/18 06:15 0.30 mg/dL (0.1-1.2) 08/29/18 06:15 AST 13 units/L (5-40) 08/29/18 06:15 ALT 7 units/L (7-56) 08/29/18 06:15 60 units/L (35-129) 08/29/18 06:15 < 0.010 ng/mL (0.00-0.029) 08/27/18 10:57 5.7 g/dL (6.3-8.2) L 08/29/18 06:15 3.4 g/dL (3.9-5) L 08/29/18 06:15 1.5 % 08/29/18 06:15 Straw (Yellow) 08/27/18 Unknown Clear (Clear) 08/27/18 Unknown 6.0 (5.0-7.0) 08/27/18 Unknown Ur Specific [place] 1.010 (1.003-1.030) 08/27/18 Unknown <15 mg/dl mg/dL (Negative) 08/27/18 Unknown Neg mg/dL (Negative) 08/27/18 Unknown Neg mg/dL (Negative) 08/27/18 Unknown Neg (Negative) 08/27/18 Unknown Neg (Negative) 08/27/18 Unknown Neg (Negative) 08/27/18 Unknown < 2.0 mg/dL (<2.0) 08/27/18 Unknown Ur Leukocyte Esterase Neg (Negative) 08/27/18 Unknown < 1.0 /HPF (0.0-6.0) 08/27/18 Unknown < 1.0 /HPF (0.0-6.0) 08/27/18 Unknown U Epithel Cells (Auto) < 1.0 /HPF (0-13.0) 08/27/18 Unknown Salicylates 4.1 mg/dL (2.8-20.0) 08/27/18 14:42 Presumptive negative 08/27/18 Unknown Presumptive negative 08/27/18 Unknown Acetaminophen < 5.0 ug/mL (10.0-30.0) L 08/28/18 21:50 Ur Barbiturates Screen Presumptive negative 08/27/18 Unknown Ur Phencyclidine Scrn Presumptive negative 08/27/18 Unknown Ur Amphetamines Screen Presumptive negative 08/27/18 Unknown U Benzodiazepines Scrn Presumptive negative 08/27/18 Unknown Presumptive negative 08/27/18 Unknown U Marijuana (THC) Screen Presumptive positive 08/27/18 Unknown Disclamer 08/27/18 Unknown Plasma/Serum Alcohol 0.06 % (0-0.07) 08/27/18 10:57 Active Medications - Current Medications Current Medications: Generic Name Dose Route Start Last Admin Trade Name Freq PRN Reason Stop Dose Admin Acetaminophen 650 mg 08/27/18 20:29 Tylenol PO Q4H PRN Pain MILD(1-3)/Fever >100.5/THOMAS Enoxaparin Sodium 40 mg 08/27/18 22:00 08/29/18 21:14 Lovenox SUB-Q 40 mg QDAY@2200 MICHELINE Administration Famotidine 10 mg 08/29/18 22:00 08/30/18 10:35 Pepcid PO 10 mg BID MICHELINE Administration Ondansetron HCl 4 mg 08/27/18 20:29 Zofran IV Q8H PRN Nausea And Vomiting Sodium Chloride 10 ml 08/27/18 22:00 08/30/18 10:34 Sodium Chloride Flush Syringe 10 Ml IV 10 ml BID MICHELINE Administration Sodium Chloride 10 ml 08/27/18 20:29 Sodium Chloride Flush Syringe 10 Ml IV PRN PRN LINE FLUSH
--- NOTE | 2018-08-30 19:16 | Consultation ---
History of Present Illness - Reason for Consult Consult date: 08/30/18 Reason for consult: psychiatric evaluation - Chief Complaint Chief complaint: "I took 10 aspirin and 10 tablets of Tylenol" - History of Present Psychiatric Illness 23 yo AAM seen for psychiatric evaluation on the medical floor. He stated he attempted suicide on , 08/27/18 and "took about 20 different pills." hE stated he did not want to be here (alive). He reports dysfunctional family relationships and life stressors which contributed to his suicidal thoughts and ultimately his attempt. He also reports being on probation as a stressor and his love life. He reports sometimes seeing his grandfather who when he was 15 years old. Pt stated he will see his grandfather talking to him and feeling disappointment from him. Pt stated he sees his grandfather at least once a month but not daily. hE admits to using marijuana daily at least 2-3 blunts.He stated the week leading up to his attempt he was drinking alcohol. He stated he drank 1 pint over the course of the week. He states he drinks rarely with this exception. Medications and Allergies Allergies Allergy/AdvReac Type Severity Reaction Status Date / Time No Known Allergies Allergy Unverified 01/03/15 13:24 Home Medications Medication Instructions Recorded Confirmed Last Taken Type Ketorolac [Toradol] 10 mg PO Q6H PRN #20 tablet 01/03/15 08/29/18 Unknown Rx Active Meds: Active Medications Acetaminophen (Tylenol) 650 mg PO Q4H PRN PRN Reason: Pain MILD(1-3)/Fever >100.5/THOMAS Enoxaparin Sodium (Lovenox) 40 mg SUB-Q QDAY@2200 [facility] Last Admin: 08/29/18 21:14 Dose: 40 mg Documented by: Famotidine (Pepcid) 10 mg PO BID [facility] Last Admin: 08/30/18 10:35 Dose: 10 mg Documented by: Ondansetron HCl (Zofran) 4 mg IV Q8H PRN PRN Reason: Nausea And Vomiting Sodium Chloride (Sodium Chloride Flush Syringe 10 Ml) 10 ml IV BID [facility] Last Admin: 08/30/18 10:34 Dose: 10 ml Documented by: Sodium Chloride (Sodium Chloride Flush Syringe 10 Ml) 10 ml IV PRN PRN PRN Reason: LINE FLUSH Past psychiatric history - Past Medical History Past Medical History: No medical history Past Surgical History: No surgical history - past Psychiatric treatment and history psychiatric treatment history: DENIES PREVIOUS TREATMENT - Social History Social history: single, lives with family (lives with parents), other (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 no HI) Thought Process: Intact Perceptions: visual, hallucinations Speech: normal rate and pattern Concentration: focused Motor activity: normal Level of consciousness: alert Memory: Intact Sleep Symptoms: None Interaction: cooperative Results Result Diagrams: 08/28/18 07:18 08/29/18 06:15 All other labs normal. Assessment and Plan Assessment and plan: Impression: intentional overdose Major depressive disorder, severe recommendation: continue 1013 prozac 20mg daily for major depression. risk of SI discussed. agreeable dispo: inpatient psychiatric facility staffed with Dr. Browne
[2018-08-30] MEDS: LOVENOX SUB-Q SCH (21:52)
[2018-08-31] MEDS: PEPCID PO SCH (09:54)
[2018-08-31] MEDS: SODIUM CHLORIDE FLUSH SYRINGE 10 ML IV SCH (09:55)
[2018-08-31] MEDS ORDERED: PROzac PO SCH (10:00)
--- NOTE | 2018-08-31 10:43 | Progress Note ---
Subjective - Reason for Consult Consult date: 08/31/18 Reason for consult: Psychiatry [id number] - Chief Complaint Chief complaint: "I didn't want to live" 23 yo AAM seen for psychiatric evaluation on the medical floor. He stated he attempted suicide by overdosing on several pills. He stated that he was overwhelmed with life stressors prior to coming to the ER, He stated that he wanted to "end it all," but denies that now. He stated that he understands the severity of his actions. He denies any previous suicide attempts when asked. He denies SI/HI"s and AVH's. Mental Status Exam - Vital signs Last Vital Signs Temp 97.9 F 08/31/18 06:06 Pulse 58 L 08/31/18 06:06 Resp 14 08/31/18 06:06 BP 110/55 08/31/18 06:06 Pulse Ox 95 08/31/18 06:06 - Exam Narrative exam: MSE: Appearance: calm, cooperative Behavior: regular eye contact Speech: regular rate and tone Mood: "okay" Affect: congruent to mood Thought Process: circumstantial Thought Content: denies SI/HI's and AVH's Motor Activity: sitting up in the bed Cognition: A/O x 3 Insight: fair Judgment: variable to fair Assessment and Plan Impression: MDD. Cannabis Use DO. Today the patient is calm and cooperative during the assessment. DDx: R/O Bipolar DO Recommendation/Plan: Continue 1013 and Prozac 20 mg PO daily for depression. Discussed possible suicidality/mediation induced amanda with the patient reference Prozac, he verbalized understanding. Dispo: The patient was referred to inpatient psy services. Will staff with Dr Dori Browne.
--- NOTE | 2018-08-31 15:25 | Progress Note ---
Assessment and Plan Assessment and plan: --Suicide attempt; suicide watch Patient feels better today, denies depression, denies suicidal thoughts 1013 status, psych following --Tylenol overdose; intentional/suicidal attempt Tylenol levels normal limits Normal LFTs, no symptoms Patient received a dose of acetylcysteine in ED Poison control recommend supportive care --Depression:1013 status Management per psych --Hypokalemia; corrected --Mild malnutrition/hypoalbuminemia Supportive care --Marijuana use; advised to quit recreational drug use Patient verbalized understanding --DVT prophylaxis; Lovenox 1013 status Patient is medically stable for discharge Disposition per psych Plan of care reviewed with the mother at the bedside History Interval history: Patient feels better new complaints denies Denies depression or suicidal thoughts Vital signs stable Alert awake oriented 3 not in acute distress Hospitalist Physical - Constitutional Vitals: Temp Pulse Resp BP Pulse Ox 97.9 F 59 L 18 125/62 97 08/31/18 12:45 08/31/18 12:45 08/31/18 12:45 08/31/18 12:45 08/31/18 12:45 General appearance: Present: no acute distress, well-nourished - EENT Eyes: Present: PERRL, EOM intact - Neck Neck: Present: supple, normal ROM - Respiratory Respiratory effort: normal Respiratory: negative: rales, rhonchi, wheezing - Cardiovascular Rhythm: regular Heart Sounds: Present: S1 & S2 - Extremities Extremities: no ischemia, No edema - Abdominal General gastrointestinal: soft, non-tender, non-distended, normal bowel sounds - Integumentary Integumentary: Present: clear, warm - Psychiatric Psychiatric: appropriate mood/affect, cooperative - Neurologic Neurologic: CNII-XII intact, moves all extremities Results - Labs CBC & Chem 7: 08/28/18 07:18 08/29/18 06:15 Labs: Laboratory Last Values WBC 4.8 K/mm3 (4.5-11.0) 08/28/18 07:18 RBC 5.08 M/mm3 (3.65-5.03) H 08/28/18 07:18 Hgb 14.1 gm/dl (11.8-15.2) 08/28/18 07:18 Hct 43.1 % (35.5-45.6) 08/28/18 07:18 MCV 85 fl (84-94) 08/28/18 07:18 MCH 28 pg (28-32) 08/28/18 07:18 MCHC 33 % (32-34) 08/28/18 07:18 RDW 15.0 % (13.2-15.2) 08/28/18 07:18 Plt Count 204 K/mm3 (140-440) 08/28/18 07:18 Lymph % (Auto) 23.5 % (13.4-35.0) 08/28/18 07:18 [place] % (Auto) 8.2 % (0.0-7.3) H 08/28/18 07:18 Eos % (Auto) 4.4 % (0.0-4.3) H 08/28/18 07:18 Baso % (Auto) 1.3 % (0.0-1.8) 08/28/18 07:18 Lymph # 1.1 K/mm3 (1.2-5.4) L 08/28/18 07:18 [place] # 0.4 K/mm3 (0.0-0.8) 08/28/18 07:18 Eos # 0.2 K/mm3 (0.0-0.4) 08/28/18 07:18 Baso # 0.1 K/mm3 (0.0-0.1) 08/28/18 07:18 Add Manual Diff Complete 08/27/18 10:57 Seg Neutrophils % 62.6 % (40.0-70.0) 08/28/18 07:18 Seg Neutrophils # 3.0 K/mm3 (1.8-7.7) 08/28/18 07:18 Sodium 143 mmol/L (137-145) 08/29/18 06:15 Potassium 4.4 mmol/L (3.6-5.0) 08/29/18 06:15 Chloride 106.6 mmol/L (98-107) 08/29/18 06:15 Carbon Dioxide 26 mmol/L (22-30) 08/29/18 06:15 15 mmol/L 08/29/18 06:15 BUN 5 mg/dL (9-20) L 08/29/18 06:15 1.1 mg/dL (0.8-1.5) 08/29/18 06:15 Estimated GFR > 60 ml/min 08/29/18 06:15 5 % 08/29/18 06:15 Glucose 82 mg/dL (75-100) 08/29/18 06:15 5.5 % (4-6) 08/27/18 20:43 Calcium 9.0 mg/dL (8.4-10.2) 08/29/18 06:15 0.30 mg/dL (0.1-1.2) 08/29/18 06:15 AST 13 units/L (5-40) 08/29/18 06:15 ALT 7 units/L (7-56) 08/29/18 06:15 60 units/L (35-129) 08/29/18 06:15 < 0.010 ng/mL (0.00-0.029) 08/27/18 10:57 5.7 g/dL (6.3-8.2) L 08/29/18 06:15 3.4 g/dL (3.9-5) L 08/29/18 06:15 1.5 % 08/29/18 06:15 Straw (Yellow) 08/27/18 Unknown Clear (Clear) 08/27/18 Unknown 6.0 (5.0-7.0) 08/27/18 Unknown Ur Specific [place] 1.010 (1.003-1.030) 08/27/18 Unknown <15 mg/dl mg/dL (Negative) 08/27/18 Unknown Neg mg/dL (Negative) 08/27/18 Unknown Neg mg/dL (Negative) 08/27/18 Unknown Neg (Negative) 08/27/18 Unknown Neg (Negative) 08/27/18 Unknown Neg (Negative) 08/27/18 Unknown < 2.0 mg/dL (<2.0) 08/27/18 Unknown Ur Leukocyte Esterase Neg (Negative) 08/27/18 Unknown < 1.0 /HPF (0.0-6.0) 08/27/18 Unknown < 1.0 /HPF (0.0-6.0) 08/27/18 Unknown U Epithel Cells (Auto) < 1.0 /HPF (0-13.0) 08/27/18 Unknown Salicylates 4.1 mg/dL (2.8-20.0) 08/27/18 14:42 Presumptive negative 08/27/18 Unknown Presumptive negative 08/27/18 Unknown Acetaminophen < 5.0 ug/mL (10.0-30.0) L 08/28/18 21:50 Ur Barbiturates Screen Presumptive negative 08/27/18 Unknown Ur Phencyclidine Scrn Presumptive negative 08/27/18 Unknown Ur Amphetamines Screen Presumptive negative 08/27/18 Unknown U Benzodiazepines Scrn Presumptive negative 08/27/18 Unknown Presumptive negative 08/27/18 Unknown U Marijuana (THC) Screen Presumptive positive 08/27/18 Unknown Disclamer 08/27/18 Unknown Plasma/Serum Alcohol 0.06 % (0-0.07) 08/27/18 10:57 Active Medications - Current Medications Current Medications: Generic Name Dose Route Start Last Admin Trade Name Freq PRN Reason Stop Dose Admin Acetaminophen 650 mg 08/27/18 20:29 Tylenol PO Q4H PRN Pain MILD(1-3)/Fever >100.5/THOMAS Enoxaparin Sodium 40 mg 08/27/18 22:00 08/30/18 21:52 Lovenox SUB-Q 40 mg QDAY@2200 MICHELINE Administration Famotidine 10 mg 08/29/18 22:00 08/31/18 09:54 Pepcid PO 10 mg BID MICHELINE Administration Fluoxetine HCl 20 mg 08/31/18 10:00 08/31/18 09:54 Prozac PO 20 mg QAM MICHELINE Administration Ondansetron HCl 4 mg 08/27/18 20:29 Zofran IV Q8H PRN Nausea And Vomiting Sodium Chloride 10 ml 08/27/18 22:00 08/31/18 09:55 Sodium Chloride Flush Syringe 10 Ml IV 10 ml BID MICHELINE Administration Sodium Chloride 10 ml 08/27/18 20:29 Sodium Chloride Flush Syringe 10 Ml IV PRN PRN LINE FLUSH
[2018-08-31 19:18] VITALS: BP 131/71
--- NOTE | 2018-09-03 19:28 | Discharge Summary ---
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 Patient says that he is depressed and wanted to . He says that there is no incentive to live. No vomiting. No gastric lavage done in the emergency room. Patient decided on treatment of 16 in the emergency room, poison control was contacted, recommended supportive care Patient was admitted to the hospital, placed on suicidal watch/1013, symptomatically managed Evaluated by psych, light imbalances were corrected Counseling done patient advised to quit recreational drug use Medically stabilized, psych has recommended inpatient psych transfer On the day of discharge patient is comfortable no new complaints vital signs stable Physical examination at discharge unremarkable Medically cleared for discharge and transfer to inpatient psych facility Plan of care is reviewed the patient and his family Stable at discharge and transfer Discharge diagnosis; And management --Suicide attempt; suicide watch Patient feels better today, denies depression, denies suicidal thoughts 1013 status, psych following --Tylenol overdose; intentional/suicidal attempt Tylenol levels normal limits Normal LFTs, no symptoms Patient received a dose of acetylcysteine in ED Poison control recommend supportive care --Depression:1013 status Management per psych --Hypokalemia; corrected --Mild malnutrition/hypoalbuminemia Supportive care --Marijuana use; advised to quit recreational drug use Patient verbalized understanding --DVT prophylaxis; Lovenox 1013 status Patient is medically stable for discharge Transfer to inpatient psych facility Plan of care reviewed with the mother at the bedside Disposition: [id number]/[id number] PSY HOSP/PSY UNIT Time spent for discharge: 32 min Core Measure Documentation - Palliative Care Palliative Care/ Comfort Measures: Not Applicable - Core Measures Any of the following diagnoses?: none Exam - Constitutional Vitals: Temp Pulse Resp BP Pulse Ox 98.5 F 59 L 20 131/71 97 08/31/18 16:06 08/31/18 12:45 08/31/18 16:06 08/31/18 16:06 08/31/18 12:45 General appearance: Present: no acute distress, well-nourished - EENT Eyes: Present: PERRL, EOM intact - Neck Neck: Present: supple, normal ROM - Respiratory Respiratory effort: normal Respiratory: negative: rales, rhonchi, wheezing - Cardiovascular Rhythm: regular Heart Sounds: Present: S1 & S2 - Extremities Extremities: no ischemia, No edema Peripheral Pulses: within normal limits - Abdominal General gastrointestinal: Present: soft, non-tender, non-distended, normal bowel sounds - Integumentary Integumentary: Present: clear, warm - Musculoskeletal Musculoskeletal: strength equal bilaterally - Psychiatric Psychiatric: appropriate mood/affect, cooperative - Neurologic Neurologic: CNII-XII intact, moves all extremities Plan Activity: no restrictions, other (1013 Status) Diet: regular Additional Instructions: Patient has been transferred to inpatient psych facility for further evaluation and management Follow up with: JUDITH SOLIMAN MD [Primary Care Provider] - 7 Days
== END 2018-08-31 21:15 | DRG 917 ==
LOC: ED 10:46 → EEVIPCON 12:52 → 3A 12:52
PROVIDERS: ADMIT Internal Medicine; ATTEND Internal Medicine
DX: T39.1X2A Poisoning by 4-Aminophenol derivatives, intentional self-harm, initial encounter (principal); G92 Toxic encephalopathy; E44.1 Mild protein-calorie malnutrition; F17.200 Nicotine dependence, unspecified, uncomplicated; F32.9 Major depressive disorder, single episode, unspecified; E87.6 Hypokalemia; Z68.23 Body mass index [BMI] 23.0-23.9, adult; F12.90 Cannabis use, unspecified, uncomplicated; Y92.89 Other specified places as the place of occurrence of the external cause
CPT/HCPCS: 36415; 70450; 80053; 80307; 80320; 81001; 83036; 84484; 85025; 93005; 93010; 96360; 96361; 99406; G0378; G0480; J0132; J1650; J7030; J7060; J7070

== ENCOUNTER 2019-11-07 10:55 | Emergency (ER) | payer BC ==
[2019-11-07 11:09] VITALS: BP 133/67
[2019-11-07] MEDS ORDERED: predniSONE 20 MG TAB PO ONE (11:42)
[2019-11-07] MEDS ORDERED: KETOROLAC 60 MG/2 ML INJ IM ONE (11:42)
--- NOTE | 2019-11-07 12:16 | Emergency Department Report ---
ED Lower Extremity HPI - General Chief Complaint: Extremity Injury, Lower Stated Complaint: RIGHT LEG PAIN Time Seen by Provider: 11/07/19 11:36 Source: patient Mode of arrival: Wheelchair Limitations: No Limitations - History of Present Illness Initial Comments: This is a 24-year-old male nontoxic, well nourished in appearance, no acute signs of distress presents to the ED with c/o of right hip pain 2 days. Patient stated that he was heavy lifting and developed pains. Patient denies any other trauma or injuries. Patient denies any numbness, tingling, fever, chills, nausea, vomiting, chest pain, shortness of breath, headache, stiff neck. Patient denies any joint swelling or joint redness. Patient denies decreased range of motion. Patient stated has decreased gait due to pain. Patient denies any allergies or significant past medical history. MD Complaint: hip injury -: days(s) Injury: Hip: Right Severity: mild Severity scale (0 -10): 8 Improves With: immobilization Worsens With: weight bearing, palpation Associated Symptoms: able to partially bear weight. denies: snap/pop sensation, swelling, numbness, tingling, unable to bear weight - Related Data Previous Rx's Medication Instructions Recorded Last Taken Type Ketorolac [Toradol] 10 mg PO Q6H PRN #20 tablet 01/03/15 Unknown Rx Cyclobenzaprine [Flexeril] 10 mg PO QHS PRN #10 tablet 11/07/19 Unknown Rx Naproxen 500 mg PO Q12H PRN #12 tablet 11/07/19 Unknown Rx Allergies Allergy/AdvReac Type Severity Reaction Status Date / Time No Known Allergies Allergy Unverified 01/03/15 13:24 ED Review of Systems ROS: Stated complaint: RIGHT LEG PAIN Other details as noted in HPI Constitutional: denies: chills, fever Eyes: denies: eye pain, eye discharge, vision change ENT: denies: ear pain, throat pain Respiratory: denies: cough, shortness of breath, wheezing Cardiovascular: denies: chest pain, palpitations Endocrine: no symptoms reported Gastrointestinal: denies: abdominal pain, nausea, diarrhea Genitourinary: denies: urgency, dysuria Musculoskeletal: denies: back pain, joint swelling, arthralgia Skin: denies: rash, lesions Neurological: denies: headache, weakness, paresthesias Psychiatric: denies: anxiety, depression Hematological/Lymphatic: denies: easy bleeding, easy bruising ED Past Medical Hx - Past Medical History Previous Medical History?: No Hx Sickle Cell Disease: Yes (Aunt) - Surgical History Past Surgical History?: No - Social History Smoking Status: Never Smoker Substance Use Type: Alcohol, Marijuana - Medications Home Medications: Home Medications Medication Instructions Recorded Confirmed Last Taken Type Ketorolac [Toradol] 10 mg PO Q6H PRN #20 tablet 01/03/15 08/29/18 Unknown Rx Cyclobenzaprine [Flexeril] 10 mg PO QHS PRN #10 tablet 11/07/19 Unknown Rx Naproxen 500 mg PO Q12H PRN #12 tablet 11/07/19 Unknown Rx ED Physical Exam - General Limitations: No Limitations General appearance: alert, in no apparent distress - Head Head exam: Present: atraumatic, normocephalic - Eye Eye exam: Present: normal appearance - Neck Neck exam: Present: normal inspection, full ROM. Absent: tenderness, meningismus, lymphadenopathy - Respiratory Respiratory exam: Absent: respiratory distress - Cardiovascular Cardiovascular Exam: Present: regular rate - GI/Abdominal GI/Abdominal exam: Present: soft, normal bowel sounds. Absent: distended, tenderness, guarding, rebound, rigid, diminished bowel sounds - Extremities Exam Extremities exam: Present: normal inspection, full ROM, tenderness, normal capillary refill. Absent: joint swelling, calf tenderness - Expanded Lower Extremity Exam Right Hip exam: Present: normal inspection, full ROM, tenderness, external rotation, internal rotation, pelvic stability. Absent: swelling, abrasion, laceration, ecchymosis, deformity, crepidus, dislocation, erythema, shortening Upper Leg exam: Present: normal inspection, full ROM. Absent: tenderness, swelling Knee exam: Present: normal inspection, full ROM. Absent: tenderness, swelling Lower Leg exam: Present: normal inspection, full ROM. Absent: tenderness, swelling Ankle exam: Present: normal inspection, full ROM. Absent: tenderness, swelling Foot/Toe exam: Present: normal inspection, full ROM. Absent: tenderness, swelling Neuro vascular tendon exam: Present: no vascular compromise Gait: Positive: observed and limited by pain - Back Exam Back exam: Present: normal inspection, full ROM. Absent: tenderness, CVA tenderness (R), CVA tenderness (L), muscle spasm, paraspinal tenderness, vertebral tenderness, rash noted - Neurological Exam Neurological exam: Present: alert, oriented X3, normal gait - Psychiatric Psychiatric exam: Present: normal affect, normal mood - Skin Skin exam: Present: warm, dry, intact, normal color. Absent: rash ED Course Vital Signs 11/07/19 11/07/19 11:04 11:07 Temperature 98.8 F Pulse Rate 71 Blood Pressure 133/67 O2 Sat by Pulse 98 Oximetry - Reevaluation(s) Reevaluation #1: 11/07/19 12:21 Patient is speaking in full sentences with no signs of distress noted. ED Lower Extremity MDM - Radiology Data Referring Physician: TRUONG OAKLEY Patient Name: MARGARITO MARTI Date of : 1995 Sex: Male Report Date: 2019-11-07 Report Status: Finalized [facility] [address] [place] [address] XRay Report Signed Patient: MARGARITO MARTI MR#: [id number] : 1995 Acct:[id number] Age/Sex: 24 / M ADM Date: 11/07/19 Loc: ED Attending Dr: Ordering Physician: TRUONG OAKLEY NP Date of Service: 11/07/19 Procedure(s): XR hip 2-3V RT Accession Number(s): [id number] cc: TRUONG OAKLEY NP Fluoro Time In Minutes: RIGHT HIP 2 VIEW(S) INDICATION / CLINICAL INFORMATION: right hip/pelvic pain COMPARISON: None available. FINDINGS: BONES / JOINT(S): No acute fracture or subluxation. No significant arthritis. SOFT TISSUES: No significant abnormality. ADDITIONAL FINDINGS: None. Signer Name: Cirilo Bañuelos MD Signed: 11/07/2019 12:30 PM Workstation Name: [id number] Transcribed By: Dictated By: CIRILO BAÑUELOS Electronically Authenticated By: CIRILO BAÑUELOS Signed Date/Time: 11/07/19 1230 DD/ 1229 TD/TT: - Medical Decision Making This is a 24-year-old male that presents with right hip strain. Patient is stable and was examined by me. I referred patient to an orthopedic doctor for further evaluation for possible MRI. X-ray has been obtained and dictated by the radiologist. Patient is notified of the x-ray report with noted by the patient. Patient does have normal gait with no tenderness and no joint swelling. No ecchymosis. no joint redness or swelling. Not warm to touch. No signs of cellulites present. Patient was instructed to RICE therapy. Patient received Toradol and prednisone for pain which stated symptoms are improviding and subsiding. Patient is discharged with Naproxen and Flexeril/. At time of discharge, the patient does not seem toxic or ill in appearance. No acute signs of distress noted. Patient agrees to discharge treatment plan of care. No f urther questions noted by the patient. Critical care attestation.: If time is entered above; I have spent that time in minutes in the direct care of this critically ill patient, excluding procedure time. ED Disposition Clinical Impression: Strain of right hip Qualifiers: Encounter type: initial encounter Qualified Code(s): S76.011A - Strain of muscle, fascia and tendon of right hip, initial encounter Disposition: TO HOME OR SELFCARE Is pt being admited?: No Does the pt Need Aspirin: No Condition: Stable Instructions: Cyclobenzaprine (By mouth), Muscle Strain (ED) Additional Instructions: Follow-up with your primary care doctor in 3-5 days or if symptoms worsen such as bladder or bowel stability, chest pain, short of breath, numbness or tingling sensation in extremities, headache, dizziness, visual changes, nausea vomiting, or abdominal pain, return back to emergency room as was possible. Take ibuprofen and Flexeril as prescribed. Do not operate heavy machinery while taking Flexeril due to sedation No physical activity that extremity until cleared by orthopedic doctor Prescriptions: Cyclobenzaprine [Flexeril] 10 mg PO QHS PRN #10 tablet PRN Reason: Muscle Spasm Naproxen 500 mg PO Q12H PRN #12 tablet PRN Reason: Pain , Severe (7-10) Referrals: JUDITH SOLIMAN MD [Primary Care Provider] - 3-5 Days PRIMARY CAREMD [Referring] - 3-5 Days LEIGH GIVENS MD [Staff Physician] - 3-5 Days PARVEZ PALACIO MD [Staff Physician] - 3-5 Days Forms: Work/School Release Form(ED)
--- NOTE | 2019-11-07 12:34 | XRay Report ---
RIGHT HIP 2 VIEW(S) INDICATION / CLINICAL INFORMATION: right hip/pelvic pain COMPARISON: None available. FINDINGS: BONES / JOINT(S): No acute fracture or subluxation. No significant arthritis. SOFT TISSUES: No significant abnormality. ADDITIONAL FINDINGS: None. Signer Name: Cirilo Webster MD Signed: 11/07/2019 12:30 PM Workstation Name: [id number]
== END 2019-11-07 13:02 | disposition home or self-care (01) ==
LOC: ED 10:55
DX: S76.011A Strain of muscle, fascia and tendon of right hip, initial encounter (principal); F17.200 Nicotine dependence, unspecified, uncomplicated; Z79.899 Other long term (current) drug therapy; X50.0XXA Overexertion from strenuous movement or load, initial encounter; Y93.89 Activity, other specified; Y92.89 Other specified places as the place of occurrence of the external cause; Y99.8 Other external cause status
CPT/HCPCS: 73502; 96372; 99283; J1885; J7512